=== PATIENT | male | born 1980 | race African-American/Black ===

== ENCOUNTER 2025-07-08 11:33 | Emergency (ER) | payer MEDICAID, OTHER ==
[~2025-07-08] VITALS: Ht 180.3 cm; Wt 75.4 kg
[~2025-07-08 11:33] MED LIST: ADAL40KI2 SC
[2025-07-08] MEDS: SODIUM CHLORIDE 0.9% 1,000 ML IV ONE ×2 (12:12→14:05)
[2025-07-08 12:24] LABS: Nucleated Red Blood Cells % 0.0 %
[2025-07-08] MEDS: ONDANSETRON HCL 4 MG/2 ML VIAL IV ONE (12:24)
[2025-07-08 12:27] LABS: Hematocrit 30.3 % (41.0-53.0); Hemoglobin 9.2 g/dL (13.5-17.5); Mean Corpuscular Hemoglobin 19.0 pg (28.0-32.0); Mean Corpuscular Volume 62.9 fL (80.0-100.0)
[2025-07-08 12:40] LABS: Alanine Aminotransferase 24 U/L (7-40); Albumin 4.1 g/dL (3.2-4.8); Anion Gap 14 (5-15); BUN/Creatinine Ratio 9.5 (10.0-20.0); Blood Urea Nitrogen 15 mg/dL (9-23); Calcium 8.8 mg/dL (8.7-10.4); Carbon Dioxide 26 mmol/L (20-31); Glucose 104 mg/dL (74-106); Total Protein 7.9 g/dL (5.7-8.2)
[2025-07-08 12:41] LABS: Bilirubin, Total 0.7 mg/dL (0.2-1.0)
--- NOTE | 2025-07-08 12:45 | ED.PDOC ---
GI ASSESSMENT HPI Comments JOSE; HPI: Poor Historian. 45-year-old male presents to emergency department for evaluation of many months of right-sided abdominal pain with a history of Crohn's. - Patient states that in the last week has been having nausea and vomiting and diarrhea nonbilious nonbloody in normal stool color. - He says his episodes of diarrhea are very severe that he is not fast enough to make it to the bathroom so he decided to wear a diaper. - Patient isn't able to keep any food down due to vomiting and nausea. - Pt states the pain is constant, non radiating, with noted exacerbation of pain with any movement and no relieving factors Past Medical History: inflammatory bowel disease, ulcerative colitis and Crohn disease Inflammatory bowel disease associated arthropathy. Past Surgical History: Colonoscopy and EGD and biopsies Medications: Social history: denies EOTH, denies tobacco use, denies drug use Allergies: denies REVIEW OF SYSTEMS: CONSTITUTIONAL: Denies acute: fever, diaphoresis, chills, HEAD: Denies acute: headache, photophobia Eyes: Denies acute: Double vision, vision loss, eye pain, eye discharge. EARS: Denies acute: tinnitus, hearing loss, ear discharge, ear pain, THROAT: Denies acute: sore throat, swelling, difficulty swallowing , pain with swallowing, change in voice. NECK: Denies acute: neck pain, neck swelling, stiff neck. HEART: Denies acute : chest pain, palpitations, LUNGS: Denies acute: SOB, wheezing, cough, hemoptysis ABDOMEN: Denies acute: melena , hematemesis, hematochezia SKIN: Denies acute: rash, redness, lesions, itchiness. EXTREMITIES: Denies acute: calf pain, numbness, tingling, weakness, denies pain in extremity. Denies acute: Low back pain. Neuro: Denies acute: focal neurological deficit, motor or sensory focal neurological deficit, tremors, seizure like activity, confusion, dizziness, change in mental status, loss of bowel or bladder function, cauda equina like symptoms. : Denies acute: dysuria, hematuria, flank pain, increase in urinary frequency. PSYCH: Denies acute: hallucination, suicidal ideation, homicidal ideation. PHYSICAL EXAM: General: -----mild---acute distress, awake and alert. Head: normocephalic, atraumatic. Neck: supple, trachea is midline, no swelling. Throat: Normal phonation. Eyes:, no erythema, no purulent discharge, no proptosis, no icterus. Heart: regular tachycardia, no significant murmur appreciated. Lungs: no apparent respiratory distress, Able to speak in full sentences. No wheezing, no rhonchi, no crackles. No stridors Clear to auscultation bilaterally. Abdomen: Right-sided abdominal tender to palpation, non distended, soft, no guarding, no rebound, + bowel sounds. Neuro: Awake, Alert, oriented to name, self, situation, follows commands GCS=15. Speech is normal. Skin: no petechia, no purpura, no cyanosis, mildly-pale, not jaundice. Lower extremities: --no - Pitting edema no deformity, no focal swelling, no calf TTP. Makes eye contact. moves all four extremities. Face: no apparent facial droop. Ambulating in the ED independently. ED COURSE: DISCLAIMER: This medical document was created using an electronic medical record system with voice recognition software and computerized dictation system. Although this document has been carefully reviewed, there might still be some phonetic and typographical errors. Occasional wrong-word or "sound-alike" substitutions may have occurred due to the inherent limitations of voice recognition software. These areas are purely typographical due to imperfections of the software programs and do not reflect any compromise in the patient's medical care. Please read the chart carefully and recognize, using context, where these substitutions have occurred. Chief Complaint: Nausea/Vomiting Time Seen by MD: 11:35 Primary Care Provider: JIMMY Arreola Notes: Allergies Allergies: Coded Allergies: NO KNOWN ALLERGIES (Unverified , 06/11/14) Home Meds Reported Medications Adalimumab (Humira Pen) 40MG/0.8 Kit, 1 ' SC, KIT 06/11/14 Information Source: Patient Mode of Arrival: Ambulatory Brought in by: self Past Medical History PAST MEDICAL HISTORY: Anemia, Asthma Surgical History: Denies all surgeries Family History Family History: Reviewed,noncontributory to illness Social History Smoker: Non-Smoker Alcohol: Occasionally Drugs: Denies Drug Use Lives In: Home Was a procedure done? Was a procedure done?: No GI differential Dx Differential Diagnosis: Gastroenteritis, Hepatitis, Dehydration, Diabetes/ DKA, Food Poisoning, Bacterial, Parasitic, Other (DDX include but not limited to diverticulitis, colitis, gastroenteritis, acute abdomen, SBO, enteritis, constipation, volvulus, appendicitis, Gallbladder disease, choledocolithiasis, ascending cholangitis, pancreatitis, intraAbdominal mass/neoplasm, hepatitis, UTI, pylonephritis, kidney stone, aneurysm, dissection, Inflammatory bowel disease, gastroparesis, ischemic bowel.) X-Ray, Labs, Meds, VS Vital Signs Date Time Temp Pulse Resp B/P (MAP) Pulse Ox O2 Delivery O2 Flow Rate FiO2 07/08/25 19:24 91 100 Room Air* 0 21 07/08/25 19:24 99.0 91 15 128/83 (98) 100 99.0 07/08/25 19:00 13 99 Room Air* 0 21 07/08/25 19:00 98.8 98 13 177/92 (120) 99 98.8 07/08/25 18:30 97.9 83 17 104/63 (77) 98 97.9 07/08/25 17:50 80 18 94/62 (73) 95 07/08/25 16:00 80 12 105/68 (80) 99 07/08/25 15:00 89 12 116/66 (83) 98 07/08/25 14:00 100 14 125/74 (91) 100 07/08/25 13:46 95 13 100 Room Air* 0 21 07/08/25 13:46 97.7 95 13 118/69 (85) 100 97.7 07/08/25 12:13 121 18 114/64 (81) 96 07/08/25 12:13 121 18 96 Room Air 07/08/25 11:35 97.7 127 15 105/77 100 97.7 Lab Test 07/08/25 18:50 07/08/25 13:33 07/08/25 13:30 07/08/25 12:02 Range/Units Urine Color Yellow Yellow Urine Clarity Turbid H Clear Urine pH 6.0 5.0-9.0 Urine Specific Pollock 1.020 1.001-1.035 Urine Protein 1+ H Negative Urine Ketones Trace Negative Urine Blood Negative Negative /uL Urine Nitrite Negative Negative Urine Bilirubin Negative Negative Urine Urobilinogen 3 H Negative mg/dL Urine Leukocyte Esterase Negative Negative /uL Urine RBC 1 0 - 3 /hpf Urine Microscopic WBC 19 H 0-3 /HPF Urine Squamous Epithelial Cells Few <5 /hpf Urine Bacteria Few H None Seen /hpf Urine Cellular Casts Few 0 /hpf Urine Hyaline Casts Mod 0 - 2 /lpf Urine Granular Casts Few 0 /lpf Urine Mucus Few None Seen Urine Glucose Normal Normal mg/dL Lactic Acid Level 2.0 0.4-2.0 mmol/L Prothrombin Time 13.6 H 9.3-11.8 sec Prothrombin Time INR 1.32 H 0.9-1.15 Activated Partial Thromboplast Time 34.2 24.5-34.5 SEC Magnesium Level 1.7 1.6-2.6 mg/dL White Blood Count 16.4 H 4.4-10.8 10^3/uL Red Blood Count 4.82 4.5-5.90 10^6/uL Hemoglobin 9.2 L 13.5-17.5 g/dL Hematocrit 30.3 L 41.0-53.0 % Mean Corpuscular Volume 62.9 L 80.0-100.0 fL Mean Corpuscular Hemoglobin 19.0 L 28.0-32.0 pg Mean Corpuscular Hemoglobin Concent 30.2 L 32.0-36.0 g/dL Red Cell Distribution Width 17.3 H 11.8-14.3 % Platelet Count 1176 *H 140-450 10^3/uL Mean Platelet Volume 7.2 6.9-10.8 fL Neutrophils (%) (Auto) 85.8 H 37.0-80.0 % Lymphocytes (%) (Auto) 6.0 L 10.0-50.0 % Monocytes (%) (Auto) 6.6 0.0-12.0 % Eosinophils (%) (Auto) 1.4 0.0-7.0 % Basophils (%) (Auto) 0.2 0.0-2.0 % Neutrophils # (Auto) 14.1 H 1.6-8.6 10 ^3/uL Lymphocytes # (Auto) 1.0 0.4-5.4 10 ^3/uL Monocytes # (Auto) 1.1 0-1.3 10 ^3/uL Eosinophils # (Auto) 0.2 0-0.8 10 ^3/uL Basophils # (Auto) 0 0-0.2 10 ^3/uL Nucleated Red Blood Cells 0.0 % Platelet Estimate Markedly increased Large Platelets Few Hypochromasia (manual) Marked Anisocytosis (manual) Slight Microcytosis Marked Rupa Cells Few Sodium Level 134 L 136-145 mmol/L Potassium Level 2.6 L 3.5-5.1 mmol/L Chloride Level 94 L 98-107 mmol/L Carbon Dioxide Level 26 20-31 mmol/L Anion Gap 14 5-15 Blood Urea Nitrogen 15 9-23 mg/dL Creatinine 1.58 H 0.700-1.30 mg/dL Glomerular Filtration Rate Calc 55 >90 mL/min BUN/Creatinine Ratio 9.5 L 10.0-20.0 Serum Glucose 104 74-106 mg/dL Calcium Level 8.8 8.7-10.4 mg/dL Total Bilirubin 0.7 0.2-1.0 mg/dL Aspartate Amino Transferase (AST) 32 13-40 U/L Alanine Aminotransferase (ALT) 24 7-40 U/L Alkaline Phosphatase 134 H 46-116 U/L Total Protein 7.9 5.7-8.2 g/dL Albumin 4.1 3.2-4.8 g/dL Lipase 64 H 12-53 U/L Microbiology Date/Time Source Procedure Growth Status 07/08/25 13:33 Blood Blood Culture - Preliminary NO GROWTH AFTER 24 HOURS OF INCUBATION. Resulted 07/08/25 13:22 Blood Blood Culture - Preliminary NO GROWTH AFTER 24 HOURS OF INCUBATION. Resulted [place] [address] Ph: [phone] DIAGNOSTIC IMAGING Diagnostic Imaging Report : [id number] Signed PATIENT: ERNESTINE GARCIA ACCT: [id number] UNIT: [id number] : 1980 LOC: ER ROOM / BED: / AGE / SEX: 45 / M ADM STATUS: REG ER SERVICE 1153 ORDERING PHYSICIAN: ELIZABET FORD DO PROCEDURE(s): ABPL - CT AB PEL WO CON-NO ORAL OR IV REASON: n/v/d abd pain ORDER NUMBER(s): [id number], ACCESSION NUMBER(s): [id number] Exam: CT CT AB PEL WO CON-NO ORAL OR IV History: n/v/d abd pain Comparison Study: None Technique: Multidetector spiral CT of the abdomen was performed from lung bases to pubic symphysis. Imaging was performed without IV contrast. Axial, coronal and sagittal multiplanar reformats were obtained from the axial data set by the technologist. Radiation Dose : 1. Abdomen/Pelvis: CTDIvol 7.79 mGy, DLP 453.68 mGy*cm. Findings: Evaluation of solid organs is limited due to lack of intravenous contrast use. Lung Bases: No acute or significant lung base finding. Normal heart size. No pleural or pericardial effusion. Liver: The liver is normal in size. No focal lesions. Gallbladder and Biliary Tree: Unremarkable Spleen: Unremarkable Pancreas: The pancreas is grossly normal in appearance. Adrenal Glands: Unremarkable Kidneys: Kidneys are grossly normal without calculi or hydronephrosis. Bladder: Grossly unremarkable for degree of distention. Bowel: Extensive inflammatory changes within the midline lower abdomen / upper pelvis. There are multiple clustered markedly thickened small bowel loops in this region with less pronounced thickening of the adjacent sigmoid colon. Extensive surrounding mesenteric inflammatory changes and a few locules of free air. Assessment difficult without contrast. Ascites: Absent Lymphadenopathy: Multiple prominent lymph nodes in the right lower quadrant mesentery. Abdominal Wall and Mesentery: Unremarkable. Vasculature: The visualized abdominal aorta is normal in size and caliber. Evaluation of abdominal and pelvic vessels is limited due to lack of intravenous contrast. Pelvic Organs: Unremarkable Musculoskeletal: No aggressive focal bony lesions, acute fractures or dislocation. Bilateral sacroiliitis. IMPRESSION: Extensive inflammatory changes with multiple thickened small bowel loops in the midline lower abdomen and pelvis. This does not clearly lie in proximity to the appendix although the appendix is not clearly visualized. This is favored related to inflammatory bowel disease given the bilateral sacroiliitis. Few locules of free air and extensive inflammatory changes suggesting micro perforation. Intravenous and oral would be beneficial. Radiation optimization: All CT scans at this facility use at least one of these dose optimization techniques: automated exposure control mA and/or kV adjustment per patient size (includes targeted exams where dose is matched to clinical indication) or iterative reconstruction. ATED BY: DANIELLE FUCHS MD DICTATED DATE/TIME: 07/08/25 1257 SIGNED BY: DANIELLE FUCHS MD SIGNED DATE/TIME: 07/08/25 1257 CC: Time of 1ST Reevaluation: 12:05 Reevaluation 1ST: Unchanged Time of 2ND Reevaluation: 16:01 (The case was discussed with the [facility] admitting team (HPI, physical exam, labs and diagnostic tests that were available at the time of disposition, ED course, treatment plan) on the phone. They agreed to transfer the patient to their service by [facility] for further evaluation and treatment. -jong. Authorization number is--[id number]) Reevaluation 2ND: Improved Patient Education/Counseling: Diagnosis, Treatment Family Education/Counseling: No Family Present Comments MDM: patient presented with the above HPI.---abdominal pain---workup was initiated. patient was found with the above mentioned diagnosis. the following medications were ordered: please refer to order lists of meds and tests obtained by myself Dr. Ford. Patient ED course and VS have been stabilized. Patient has been reassessed in the ED and remained in a stable condition. Pertinent incidental findings were discussed with the patient and/or family. Patient/family voices understanding and is agreeable with plan. Patient has been observed in the ED adequate length of time to insure improvement/stability. Escalation of care considered: Consideration of escalation to observation or admission Patient meets sepsis criteria. His sepsis protocol initiated. Patient was transferred per insurance requirement to [facility] for further evaluation and treatment of their presentation. All the reports of any imaging studies that were ordered by myself were reviewed by myself. SEPSIS Sepsis Screen Date sepsis recognized/suspect: Jul 08, 2025 Time Sepsis recognized/suspect: 1136 Recent Procedure: No On Antibiotic Therapy: No Respiratory Rate >20: No Heart Rate >90: Yes Temp<36 C (96.8 F) or >38.3 C: No SBP <90 or MAP <65 mmHG: No New Acute Mental Status Change: No Is the patient on CPAP, BIPAP,: No Physician Orders Stool Wbc (07/08/25 11:53) Ova & Parasite Exam (07/08/25 11:53) Stool Bacterial Culture (07/08/25 11:53) Clostridium Difficile Toxin (07/08/25 11:53) Ct Ab Pel Wo Con-No Oral Or Iv (07/08/25 11:53) Blood Culture (07/08/25 13:22) Chest Portable (07/08/25 13:23) Notify Md If Map <65 Or Bp<90 (07/08/25 13:23) If Map<65 Start Vasopressor (07/08/25 13:23) Sepsis Reassesment After Fluid (07/08/25 14:23) Imaging Transfer Request (07/08/25 16:05) Vital Signs Date Time Temp Pulse Resp B/P (MAP) Pulse Ox O2 Delivery O2 Flow Rate FiO2 07/08/25 19:24 91 100 Room Air* 0 21 07/08/25 19:24 99.0 91 15 128/83 (98) 100 99.0 07/08/25 19:00 13 99 Room Air* 0 21 07/08/25 19:00 98.8 98 13 177/92 (120) 99 98.8 07/08/25 18:30 97.9 83 17 104/63 (77) 98 97.9 07/08/25 17:50 80 18 94/62 (73) 95 07/08/25 16:00 80 12 105/68 (80) 99 07/08/25 15:00 89 12 116/66 (83) 98 07/08/25 14:00 100 14 125/74 (91) 100 07/08/25 13:46 95 13 100 Room Air* 0 21 07/08/25 13:46 97.7 95 13 118/69 (85) 100 97.7 07/08/25 12:13 121 18 114/64 (81) 96 07/08/25 12:13 121 18 96 Room Air 07/08/25 11:35 97.7 127 15 105/77 100 97.7 Laboratory Tests Test 07/08/25 12:02 07/08/25 13:33 White Blood Count 16.4 10^3/uL (4.4-10.8) H Lactic Acid Level 2.0 mmol/L (0.4-2.0) Departure 1 Departure Time of Disposition: 13:38 Impression: Primary Impression: Sepsis Additional Impressions: Hypokalemia Crohn disease Acute renal insufficiency Disposition: 02 SHORT TERM HOSPITAL Admit to: [facility] Condition: Guarded Discharged With: Self Critical Care Note Critical Care Time?: Yes (1 hr-critical care time only) I personally scribed for ELIZABET FORD DO ([email or web address]) on 07/08/25 at 12:45. Electronically submitted by Carmenza Fields ([facility]). I personally scribed for ELIZABET FORD DO ([email or web address]) on 07/08/25 at 13:04. Electronically submitted by Carmenza Fields ([facility] [place]). ELIZABET FORD DO Jul 08, 2025 12:45
[2025-07-08 12:58] LABS: Alkaline Phosphatase 134 U/L (46-116); Chloride 94 mmol/L (98-107); Lipase 64 U/L (12-53); Potassium 2.6 mmol/L (3.5-5.1); Sodium 134 mmol/L (136-145)
--- NOTE | 2025-07-08 12:59 | DVH ---
Exam: CT CT AB PEL WO CON-NO ORAL OR IV History: n/v/d abd pain Comparison Study: None Technique: Multidetector spiral CT of the abdomen was performed from lung bases to pubic symphysis. I maging was performed without IV contrast. Axial, coronal and sagittal multiplanar reformats were obta ined from the axial data set by the technologist. Radiation Dose : 1. Abdomen/Pelvis: CTDIvol 7.79 mGy, DLP 453.68 mGy*cm. Findings: Evaluation of solid organs is limited due to lack of intravenous contrast use. Lung Bases: No acute or significant lung base finding. Normal heart size. No pleural or pericardial effusion. Liver: The liver is normal in size. No focal lesions. Gallbladder and Biliary Tree: Unremarkable Spleen: Unremarkable Pancreas: The pancreas is grossly normal in appearance. Adrenal Glands: Unremarkable Kidneys: Kidneys are grossly normal without calculi or hydronephrosis. Bladder: Grossly unremarkable for degree of distention. Bowel: Extensive inflammatory changes within the midline lower abdomen / upper pelvis. There are mult iple clustered markedly thickened small bowel loops in this region with less pronounced thickening of the adjacent sigmoid colon. Extensive surrounding mesenteric inflammatory changes and a few locules of free air. Assessment difficult without contrast. Ascites: Absent Lymphadenopathy: Multiple prominent lymph nodes in the right lower quadrant mesentery. Abdominal Wall and Mesentery: Unremarkable. Vasculature: The visualized abdominal aorta is normal in size and caliber. Evaluation of abdominal a nd pelvic vessels is limited due to lack of intravenous contrast. Pelvic Organs: Unremarkable Musculoskeletal: No aggressive focal bony lesions, acute fractures or dislocation. Bilateral sacroili itis. IMPRESSION: Extensive inflammatory changes with multiple thickened small bowel loops in the midline lower abdomen and pelvis. This does not clearly lie in proximity to the appendix although the appendix is not petrona rly visualized. This is favored related to inflammatory bowel disease given the bilateral sacroiliiti s. Few locules of free air and extensive inflammatory changes suggesting micro perforation. Intravenous and oral would be beneficial. Radiation optimization: All CT scans at this facility use at least one of these dose optimization yossi hniques: automated exposure control mA and/or kV adjustment per patient size (includes targeted exam s where dose is matched to clinical indication) or iterative reconstruction.
[2025-07-08 13:07] LABS: Anisocytosis Slight
[2025-07-08] MEDS ORDERED: SODIUM CHLORIDE 0.9% 1,000 ML IV ONE (13:30)
[2025-07-08 13:46] VITALS: PULSE 95; RESP 13; O2SAT 100
--- NOTE | 2025-07-08 14:00 | DVH ---
EXAM: XY CHEST PORTABLE HISTORY: sepsis COMPARISON: None TECHNIQUE: Portable upright AP view of the chest was performed. FINDINGS: No pneumothorax, consolidative infiltrates, or pulmonary edema. There is mild elevation of the left h emidiaphragm. The heart is not enlarged. IMPRESSION: No acute intrathoracic process.
[2025-07-08 14:05] LABS: INR 1.32 (0.9-1.15); Partial Thromboplastin Time 34.2 SEC (24.5-34.5); Prothrombin Time 13.6 sec (9.3-11.8)
[2025-07-08] MEDS: POTASSIUM CHL 20 Meq TABLET PO ONE (14:05)
[2025-07-08] MEDS: CIPROFLOXACIN 400MG/200ML 200 ML IV ONE (14:47)
[2025-07-08 19:00] VITALS: RESP 13; O2SAT 99
[2025-07-08 19:24] VITALS: BP 128/83; PULSE 91; RESP 15; TEMP 99; O2SAT 100
[2025-07-08 19:28] LABS: Urine Protein, UAD 1+ (Negative)
== END 2025-07-08 20:01 | disposition short-term general hospital (02) ==
LOC: ER 11:33
DX: A41.9 Sepsis, unspecified organism (principal); K50.90 Crohn's disease, unspecified, without complications; N28.9 Disorder of kidney and ureter, unspecified; E87.6 Hypokalemia; J45.909 Unspecified asthma, uncomplicated
CPT/HCPCS: 36415; 71045; 74176; 80053; 81001; 83605; 83690; 83735; 85025; 85610; 85730; 87040; 96361; 96365; 96367; 96375; 99285; J0744; J2405; J3490; J7030